=== PATIENT | male | born 1950 | race African-American/Black ===

== ENCOUNTER 2016-09-29 09:12 | Emergency (ER) | payer MEDICARE, MEDICAID ==
[2016-09-29 09:48] LABS: #Basophils 0.1 thou/uL (0.0-0.2); #Eosinphils 0.2 thou/uL (0.0-0.7); #Lymphocytes 2.3 thou/uL (1.20-3.40); #Monocytes 0.8 thou/uL (0.11-0.59); %Basophils 1.9 % (0.0-1.0); %Eosinophils 3.2 % (0.0-10.0); %Monocytes 10.9 % (0.0-10.0); %Neutrophils 52.9 % (42.0-75.0); Hemoglobin 14.5 g/dL (14.0-18.0); Mean Corpuscular HGB CONC 32.2 g/dL (32.0-36.0); Mean Corpuscular Volume 86.9 fl (80.0-94.0); Mean Platelet Volume 7.4 fL (7.4-10.4); Platelet Count 251 thou/uL (130-400); RBC Distribution Width 13.3 % (11.5-14.5); Red Blood Cell (RBC) Count 5.17 mill/uL (4.70-6.10); White Blood Cell (WBC) Count 7.5 thou/uL (4.8-10.8)
[2016-09-29 10:00] LABS: ALT (SGPT) 22 U/L (8-55); AST (SGOT) 40 U/L (5-34); Albumin 4.1 g/dL (3.4-4.8); Alkaline Phosphatase 46 U/L (40-150); Anion Gap 13 mmol/L (10-20); BUN (Urea Nitrogen) 18 mg/dL (8.4-25.7); Bilirubin, Total 0.6 mg/dL (0.2-1.2); Calc. Creatinine Clearance 0 mL/min (70-130); Calcium 9.4 mg/dL (7.8-10.44); Carbon Dioxide 26 mmol/L (23-31); Chloride 105 mmol/L (98-107); Estimated GFR-MDRD 53; Globulin 3.8 g/dL (2.4-3.5); Glucose 114 mg/dL (80-115); Potassium 4.5 mmol/L (3.5-5.1); Protein, Total 7.9 g/dL (5.8-8.1); Sodium 139 mmol/L (136-145)
--- NOTE | 2016-09-29 20:59 | CT ---
CT ANGIO OF THE CHEST 09/29/[address] of the chest was performed for evaluation of this patient with some arm swelling and eleva dudley D-dimer. Axial slices were acquired, then oblique coronal reformations were done through the pul monary arteries. There is very good opacification of the pulmonary arterial system. No filling defects were seen to s uggest emboli. There is no sign of aortic dissection or aneurysm. There is calcification in the kole nary arteries and the LAD in particular looks rather irregular. There is no pericardial fluid. The h eart is perhaps slightly enlarged. Lung findings of COPD are present with substantial dependent atelectasis, particularly in the lower lungs. No lobar infiltrate was seen. The interstitium is prominent, so there may be some degree of f ibrosis in the lungs. The scan went a few slices into the upper abdomen. No gross acute finding was seen here. IMPRESSION: 1. No evidence for pulmonary embolism. 2. Cardiomegaly and coronary arteriosclerosis. 3. COPD with fibrotic changes and atelectasis. POS: HOME
--- NOTE | 2016-09-29 21:16 | RAD ---
CHEST TWO VIEWS 09/29/16 Comparison is made with a prior study of 01/10/12. The heart is borderline in size. Some fibrotic changes are suggested in the lungs but no lobar conso lidation or effusion was seen. No pulmonary mass was evident. The mediastinum was unremarkable. IMPRESSION: Fibrotic changes but no acute finding. POS: HOME
== END 2016-09-29 12:30 | disposition home or self-care (01) ==
LOC: BURERS 09:12
DX: M79.89 Other specified soft tissue disorders (principal); I10 Essential (primary) hypertension; Z87.891 Personal history of nicotine dependence
CPT/HCPCS: 71020; 71275; 80053; 85025; 85379; 96360

== ENCOUNTER 2018-05-12 11:20 | Emergency (ER) | payer MEDICARE, MEDICAID ==
[2018-05-12] MEDS ORDERED: Ketorolac Tromethamine 60 MG/2 ML VIAL ONE (11:37)
--- NOTE | 2018-05-12 12:32 | CT ---
CT OF THE BRAIN WITHOUT CONTRAST: DATE: 05/12/2018. FINDINGS: A noncontrast CT shows normal-sized ventricles for age. Mild diffuse atrophy is present. There was no sign of intracranial bleeding or extraaxial hematoma. No acute stroke, mass, or edema was seen. The calvarium appears intact. There is mucosal thickening in several of the paranasal sinuses. IMPRESSION: No acute intracranial finding. POS: HOME
--- NOTE | 2018-05-12 12:34 | CT ---
CT CERVICAL SPINE: 05/12/2018 HISTORY/TECHNIQUE: A spiral CT of the cervical spine was done following trauma. Axial slices were acquired and then cor onal and sagittal reconstructions were done. FINDINGS: No fracture or dislocation is seen at any cervical level. There is minor anterolisthesis of C4 on C5 , which is probably due to facet arthritis. Disk space narrowing is present at C5-C6. The C1 to den s distance is normal, and the soft tissues are normal in thickness. There is no central canal stenosis at any level. There is some mild to moderate left foraminal steno sis at C4-C5, with significant left facet arthritis. There is mild bilateral foraminal stenosis at C 5-C6. The surrounding soft tissues are unremarkable. Some emphysematous changes and scarring are ev ident in the apices of the lungs. IMPRESSION: Degenerative changes, as noted, but no acute traumatic findings. POS: HOME
--- NOTE | 2018-05-12 12:39 | RAD ---
CHEST 2 VIEWS: DATE: 05/12/2018. FINDINGS: Comparison is made with a 09/29/2016 study. The heart is normal in size. The mediastinum shows no wi dening or shift. Calcification is seen in the aortic arch. The trachea is midline. Fibrotic changes are seen throughout the patient's lungs, which are emphysematous in nature. This is a longstanding finding. No acute infiltrate, effusion, or gross parenchymal contusion was seen. Th ere were some slight increased markings in the right upper lobe, but there is also overlap of multipl e bones here which may be adding to the area of prominence. IMPRESSION: 1. No acute traumatic findings. 2. 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 Appearance similar to 2017. One wo uld need to do an elective CT in this patient to find small lung pathology. POS: HOME
--- NOTE | 2018-05-12 12:40 | RAD ---
LUMBAR SPINE 3 VIEWS: DATE: 05/12/2018. FINDINGS: No fracture, dislocation, or significant disk space narrowing was seen. Very minimal anterolisthesis of L3 on L4 appears to be due to facet arthritis which is present at multiple lumbar levels. The SI joints were symmetrical. Dense calcification is seen of the aorta and iliac arteries. The gas liang jean-paul of the abdomen is nonspecific with gas in large and small bowel. IMPRESSION: Degenerative changes, but no acute traumatic finding. POS: HOME
== END 2018-05-12 12:22 | disposition home or self-care (01) ==
LOC: BURERS 11:20
DX: M54.2 Cervicalgia (principal); M54.5 Low back pain; I10 Essential (primary) hypertension; F17.210 Nicotine dependence, cigarettes, uncomplicated; V89.2XXA Person injured in unspecified motor-vehicle accident, traffic, initial encounter
CPT/HCPCS: 70450; 71046; 72100; 72125; 96372; J1885

== ENCOUNTER 2021-01-01 15:09 | Emergency (ER) | payer MEDICARE, OTHER ==
[2021-01-01] MEDS ORDERED: Morphine 4 MG/ML VIAL ONE (17:08)
== END 2021-01-01 17:10 | disposition home or self-care (01) ==
LOC: BURERS 15:09
DX: T81.41XA Infection following a procedure, superficial incisional surgical site, initial encounter (principal); L03.116 Cellulitis of left lower limb; Z79.899 Other long term (current) drug therapy; E78.5 Hyperlipidemia, unspecified; E78.00 Pure hypercholesterolemia, unspecified; E78.1 Pure hyperglyceridemia; I10 Essential (primary) hypertension; F17.210 Nicotine dependence, cigarettes, uncomplicated
CPT/HCPCS: 99283; J2270